=== PATIENT | female | born 1980 | race Caucasian/White ===

== ENCOUNTER 2020-09-20 05:34 | Day surgery (SDC) | payer OTHER, SELFPAY ==
[~2020-09-20] VITALS: Ht 154.9 cm; Wt 59.0 kg
[2020-09-20 06:40] LABS: BASOPHILS % (AUTO) 0.8 % (0.0-2.0); EOSINOPHILS # (AUTO) 0.2 K/uL (0-0.4); EOSINOPHILS % (AUTO) 3.1 % (0.0-4.0); LYMPHOCYTES # (AUTO) 2.4 K/uL (2.5-16.5); LYMPHOCYTES % (AUTO) 41.4 % (20.5-51.1); MEAN CORPUSCULAR HEMOGLOBIN 27 pg (27-31); MEAN CORPUSCULAR HGB CONC 34 g/dL (33-37); MEAN CORPUSCULAR VOLUME 80.5 fL (80-94); MONOCYTES # (AUTO) 0.5 K/uL (0.8-1.0); MONOCYTES % (AUTO) 8.2 % (1.7-9.3); NEUTROPHILS # (AUTO) 2.7 K/uL (1.8-7.7); NEUTROPHILS % (AUTO) 46.5 % (42.2-75.2); PLATELET COUNT (AUTO) 370 K/uL (140-450); RED CELL DISTRIBUTION WIDTH 14.5 % (11.6-13.7); WHITE BLOOD COUNT (AUTO) 5.9 K/uL (4.8-10.8)
[2020-09-20 06:48] LABS: ANION GAP 6.8 (8-16); CARBON DIOXIDE 27.6 mmol/L (21-32); CREATININE 0.6 mg/dL (0.6-1.3); POTASSIUM 3.4 mmol/L (3.5-5.1)
[2020-09-20 06:54] LABS: ALBUMIN 3.9 g/dL (3.4-5.0); TOTAL BILIRUBIN 0.2 mg/dL (0.0-1.0)
[2020-09-20] MEDS ORDERED: ONDANSETRON 4 MG/2 ML VIAL IVP PRN (07:35)
[2020-09-20] MEDS ORDERED: MEPERIDINE 25 MG/ML SYR IVP PRN (07:35)
[2020-09-20] MEDS ORDERED: HYDROmorphone 1 MG/ML AMP IVP PRN (07:35)
[2020-09-20] MEDS ORDERED: NACL 0.9% 1,000 ML IV SCH (07:35)
[2020-09-20] MEDS ORDERED: BUPIVACAINE-MPF/EPI 0.25% 10 ML VIAL INJ ONE (07:39)
[2020-09-20] MEDS ORDERED: ROCURONIUM 50 MG/5 ML VIAL IV ONE (08:16)
[2020-09-20] MEDS ORDERED: ONDANSETRON 4 MG/2 ML VIAL ONE (08:16)
[2020-09-20] MEDS ORDERED: SUCCINYLCHOLINE CHLORIDE 200 MG/10 ML VIAL IVP ONE (08:16)
[2020-09-20] MEDS ORDERED: SEVOFLURANE 250 ML BTL INH ONE (08:16)
[2020-09-20] MEDS ORDERED: fentaNYL citrate 0.05 MG/ML VIAL ONE (08:16)
[2020-09-20] MEDS ORDERED: KETOROLAC 30 MG/ML VIAL ONE (08:16)
[2020-09-20] MEDS ORDERED: GLYCOPYRROLATE 0.2 MG/ML VIAL ONE (08:16)
[2020-09-20] MEDS ORDERED: PROPOFOL 200 MG/20 ML VIAL IV ONE (08:16)
[2020-09-20] MEDS ORDERED: DEXAMETHASONE 4 MG/ML VIAL ONE (08:16)
[2020-09-20] MEDS ORDERED: hydrALAZINE 20 MG/ML VIAL ONE (09:17)
[2020-09-20] MEDS ORDERED: hydrALAZINE 20 MG/ML VIAL IVP ONE (09:25)
[2020-09-20] MEDS ORDERED: MIDAZOLAM 2 MG/2 ML VIAL ONE (09:28)
== END 2020-09-20 11:40 | disposition home or self-care (01) ==
LOC: MOR 05:34 → MFCC 05:35 → MOR 11:40
PROVIDERS: ATTEND Obstetrics & Gynecology
DX: Z30.2 Encounter for sterilization (principal); Z79.899 Other long term (current) drug therapy; Z98.890 Other specified postprocedural states; Z20.828 Contact with and (suspected) exposure to other viral communicable diseases
CPT/HCPCS: 36415; 58670; 80053; 81025; 85025; J0330; J0360; J1100; J1885; J2250; J2405; J2704; J3010; J3490; U0003

== ENCOUNTER 2021-10-21 13:33 | Emergency (ER) | payer OTHER, SELFPAY ==
[~2021-10-21] VITALS: Ht 157.5 cm; Wt 58.1 kg
[2021-10-21 14:18] VITALS: BP 134/90
[2021-10-21] MEDS ORDERED: AZIT250T4 PO ×2 (17:12→17:33)
[2021-10-21] MEDS ORDERED: ALBU0.0912 IH ×2 (17:12→17:33)
[2021-10-21] MEDS ORDERED: PROM118S5 PO ×2 (17:12→17:33)
[2021-10-21] MEDS ORDERED: NAPR-54 PO ×2 (17:12→17:33)
--- NOTE | 2021-10-21 17:25 | NUR ---
NO NURSING INTERVENTIONS PROVIDED.
--- NOTE | 2021-10-21 17:26 | NUR ---
DISCHARGED BY AMITA EVANS Patient discharged with v/s stable. Written and verbal after care instructions ABOUT COVID 19 given and explained. Patient alert, oriented and verbalized understanding of instructions. Ambulatory with steady gait. All questions addressed prior to discharge. ID band removed. Patient advised to follow up with PMD. Rx of ALBUTEROL, ZITHROMAX, NAPROXEN, PROMETHAZINE given. Patient educated on indication of medication including possible reaction and side effects. Opportunity to ask questions provided and answered.
== END 2021-10-21 17:26 | disposition home or self-care (01) ==
LOC: MED 13:33
DX: U07.1 COVID-19 (principal); Z79.899 Other long term (current) drug therapy
CPT/HCPCS: 99283

== ENCOUNTER 2022-07-21 14:35 | Emergency (ER) | payer OTHER ==
[~2022-07-21] VITALS: Ht 157.5 cm; Wt 53.5 kg
[~2022-07-21 14:35] MED LIST: ALBU0.0912 IH; AZIT250T4 PO; NAPR-54 PO; PROM118S5 PO
[2022-07-21 14:56] VITALS: BP 125/88
[2022-07-21] MEDS ORDERED: KETOROLAC 30 MG/ML VIAL IM ONE (16:05)
[2022-07-21] MEDS ORDERED: PROM118S5 PO (16:41)
[2022-07-21] MEDS ORDERED: IBUP-2213 PO (16:41)
--- NOTE | 2022-07-21 17:14 | NUR ---
Patient discharged with v/s stable. Written and verbal after care instructions ABOUT VIRAL ILLNESS given and explained. Patient alert, oriented and verbalized understanding of instructions. Ambulatory with steady gait. All questions addressed prior to discharge. ID band removed. Patient advised to follow up with PMD. Rx of PROMETHAZINE DM, MOTRIN given. Patient educated on indication of medication including possible reaction and side effects. Opportunity to ask questions provided and answered.
== END 2022-07-21 17:14 | disposition home or self-care (01) ==
LOC: MED 14:35
DX: J06.9 Acute upper respiratory infection, unspecified (principal); Z20.822 Contact with and (suspected) exposure to COVID-19; R03.0 Elevated blood-pressure reading, without diagnosis of hypertension; R50.9 Fever, unspecified; R05.9 Cough, unspecified; M79.10 Myalgia, unspecified site; Z79.899 Other long term (current) drug therapy
CPT/HCPCS: 87426; 99283; J1885

== ENCOUNTER 2023-09-28 08:37 | Emergency (ER) | payer OTHER ==
[~2023-09-28] VITALS: Ht 157.5 cm; Wt 53.5 kg
[~2023-09-28 08:37] MED LIST changes: +IBUP-2213 PO
[2023-09-28 08:45] VITALS: BP 126/89; PULSE 98; RESP 18; TEMP 98; O2SAT 99
[2023-09-28] MEDS ORDERED: IBUP-2213 PO (10:15)
[2023-09-28] MEDS: KETOROLAC 30 MG/ML VIAL IM ONE (10:15)
== END 2023-09-28 10:22 | disposition home or self-care (01) ==
LOC: MED 08:37
DX: U07.1 COVID-19 (principal); R51.9 Headache, unspecified; Z79.899 Other long term (current) drug therapy
CPT/HCPCS: 70450; 96372; 99285; J1885

== ENCOUNTER 2024-02-10 14:50 | Emergency (ER) | payer OTHER ==
[~2024-02-10] VITALS: Ht 152.4 cm; Wt 55.8 kg
[~2024-02-10 14:50] MED LIST changes: +NAPR-337 PO; -NAPR-54 PO
[2024-02-10 15:14] VITALS: BP 129/87; PULSE 75; RESP 18; TEMP 99.5; O2SAT 97
[2024-02-10] MEDS ORDERED: ERYT5OIN51 LEFT EYE (15:35)
[2024-02-10 15:44] VITALS: BP 122/82; PULSE 77; RESP 16; TEMP 98; O2SAT 99
== END 2024-02-10 15:44 | disposition home or self-care (01) ==
LOC: MED 14:50
DX: H00.014 Hordeolum externum left upper eyelid (principal); Z79.1 Long term (current) use of non-steroidal anti-inflammatories (NSAID); Z79.899 Other long term (current) drug therapy
CPT/HCPCS: 99283

== ENCOUNTER 2024-03-21 07:18 | Emergency (ER) | payer OTHER ==
[~2024-03-21] VITALS: Ht 152.4 cm; Wt 57.2 kg
[~2024-03-21 07:18] MED LIST changes: +ERYT5OIN51 LEFT EYE
[2024-03-21 07:21] VITALS: BP 139/98; PULSE 77; RESP 19; TEMP 98.6; O2SAT 99
[2024-03-21] MEDS: KETOROLAC 60 MG/2 ML VIAL IM ONE (08:26)
[2024-03-21] MEDS ORDERED: AMOX1TAB8 PO (09:25)
[2024-03-21] MEDS ORDERED: ACET-503 PO (09:25)
[2024-03-21 10:09] VITALS: BP 127/75; PULSE 69; RESP 14; TEMP 98.3; O2SAT 99
== END 2024-03-21 10:08 | disposition home or self-care (01) ==
LOC: MED 07:18
DX: R51.9 Headache, unspecified (principal); R68.84 Jaw pain; Z79.899 Other long term (current) drug therapy
CPT/HCPCS: 70450; 81002; 81025; 99284